=== PATIENT | female | born 1970 | race Caucasian/White ===

== ENCOUNTER → 2020-02-17 15:52 | Outpatient (CLI) | payer OTHER, SELFPAY ==
--- NOTE | ~2020-02-17 | XR_ITS ---
EXAMINATION: XR wrist RT w scaphoid DATE: 02/17/2020 16:07 INDICATION: Right wrist pain post fall TECHNIQUE: Posteroanterior, ulnar deviation, oblique, and lateral views of the right wrist were obtai dimple. COMPARISON: 03/06/2017 FINDINGS: Alignment is normal. No fracture. Joint spaces are normal. Soft tissues are unremarkable. IMPRESSION: 1. No osseous abnormality. Reviewed, dictated and finalized at location B. IMPRESSION: 1. No osseous abnormality.
== END ==
PROVIDERS: PCP Internal Medicine; Visit Provider Internal Medicine
DX: M25.531 Pain in right wrist (principal)
CPT/HCPCS: 73110

== ENCOUNTER 2020-05-05 14:08 | Outpatient (CLI) | payer OTHER, SELFPAY ==
--- NOTE | 2020-05-05 16:28 | PCRCNOTE ---
PT HAD DIFFICULTY WITH SPIROMETRY, MANY ATTEMPTS WERE TRIED, SHE WAS ABLE TO COMPLETE. ALSO, DISSCUSSED METHACHOLINE CHALLENGE, STATED I WOULD FAX TESTING TO DR TO DETERMINE WHAT HE WANTS TO DO FAR TESTING SINCE SHE IS BORDERLINE. ALSO DISCUSSED MEDICATIONS, SHE WAS RECENTLY STARTED ON FLOVENT, BUT WAS TAKING IT PRN, DOESNT HAVE A RESCUE INHALER. EXPLAINED FLOVENT WAS TO BE USED BID WITH OR WITHOUT SYMPTOMS, CONSISTENTLY IN ORDER FOR THE MEDICATION TO WORK PROPERLY. ALBUTEROL WORKS DIFFERENT, FAST ACTING, ETC.. INSTRUCTED HER TO CALL DR OFFICE IF SHE HAD ANY OTHER QUESTIONS IN REGARDS TO HER MEDICATIONS AND THEY WILL LET HER KNOW ABOUT THE METHACHOLINE TESTING
--- NOTE | 2020-05-07 17:36 | WPDPFTINT ---
PFT Interpretation PFT Interpretation: DOS:05/05/2020 REQUESTING: Jovita Aguila REASON FOR TESTING: Asthma PULMONARY FUNCTION TESTS Results are reproducible. Spirometry: FEV1 88%, normal. FVC 90%. FEV1% is normal. IFF90-27% mildly decreased 63%. There is a 13% increase in the FVC with bronchodilator administration. Lung volumes: TLC 100%. RV 102%, normal. RV/TLC increased consistent with air trapping. Increased airway resistance. Diffusion: DLCO 86%, normal. Flow volume loop: mild scooping of the expiratory limb. IMPRESSION: Mild obstruction in the small airways with air trapping and increased airway resistance. There is a positive response to bronchodilator. This pattern is consistent with asthma. Soniya Brown MD
== END 2020-05-05 14:09 | disposition home or self-care (01) ==
LOC: ANHPFT 14:09
PROVIDERS: PCP Internal Medicine; Visit Provider Internal Medicine Critical Care Medicine
DX: J45.909 Unspecified asthma, uncomplicated (principal)
CPT/HCPCS: 94060; 94726; 94729

== ENCOUNTER 2021-05-31 12:02 | Emergency (ER) | payer OTHER, SELFPAY ==
--- NOTE | ~2021-05-31 | XR_ITS ---
EXAMINATION: XR wrist RT min 3V EXAM DATE: 05/31/2021 12:44 INDICATION: trauma/radial side pain initial encounter. TECHNIQUE: Right wrist frontal, frontal with ulnar deviation, oblique and lateral projections obtain ed and reviewed. Comparison is made to prior examination from 02/17/2020. FINDINGS: Right wrist scapholunate joint space is maintained. The0re are no acute fractures or disloc ations identified. There is no subcutaneous gas. The soft tissue is unremarkable. There are no ra diopaque foreign bodies. IMPRESSION: No acute osseous findings. Reviewed, dictated and finalized at location B. P REMOVER IMPRESSION: No acute osseous findings.
[2021-05-31 12:33] VITALS: BP 133/74; PULSE 61; RESP 16; TEMP 36.8; O2SAT 100
--- NOTE | 2021-05-31 13:01 | ED.UPPEXIN ---
HPI - Extremity Injury (Upper) General Chief Complaint: Extremity Injury, Upper Stated Complaint: Rt Wrist Pain Time Seen by Provider: 05/31/21 13:01 Source: patient Mode of arrival: ambulatory Limitations: no limitations History of Present Illness HPI narrative: Annemarie Dudley is a 51 yo female with a PMH of Hodgkin's and right wrist and back pain from arthritis, who comes to [facility] with right wrist pain and difficulty lifting without pain;. 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 EYES: Denies visual changes, redness, discharge. ENT: Denies rhinorrhea, congestion, sore throat, otalgia. CARDIOVASCULAR: Denies chest pain, palpitations, edema. RESPIRATORY: Denies dyspnea, wheezing, cough GASTROINTESTINAL: Denies abdominal pain, nausea, vomiting, diarrhea. GENITOURINARY: Denies dysuria, hematuria, abnormal discharge SKIN: Denies rash or itching. NEUROLOGIC: Denies numbness, or focal weakness. PSYCHIATRIC: Denies anxiety or depression. Right wrist pain that she rates as 6/10 that started yesterday and makes it painful for her to lift any object PMFSH Past Medical History Medical History History of Hodgkin's lymphoma 2009 History of pulmonary function tests 05/07/2020 SOB (shortness of breath) Surgical History Surgical History delivery delivered Family History Family History Mother Diabetes mellitus Father Emphysema of lung Social History Social History Smoking status: Never smoker Comments At time of signature, I agree with nursing past medical, surgical, social and family history. There is no relevant family history pertinent to the presenting complaint. Exam Narrative: HEAD: normocephalic, atraumatic. EYES: Sclera clear/white. Vision is grossly intact. EARS: External ears normal, . Hearing grossly intact. NOSE: External nose normal without nasal discharge, nares without redness, no rhinorrhea. THROAT: Mucous membranes moist CARDIOVASCULAR: Regular rate and rhythm without murmurs, gallops, or rubs. RESPIRATORY: Clear to auscultation. Breath sounds equal bilaterally. No wheezes, rales, or rhonchi. GASTROINTESTINAL: Abdomen soft, non-tender, SKIN: warm, intact with no suspicious lesions or rash, good texture and turgor. NEURO: awake, alert, and oriented to person, place and time. There were no obvious focal neurologic abnormalities. Steady gait EXTREMITIES: Normal range of motion. Pain with lifting right arm overhead to touch shoulder pain is mostly paraspinal and right scapula she has pain in the wrist regardless of movement and pain with lifting she has good finger opposition BACK: Nontender without deformity Course Course Emergency Course: Patient comes with pain in her right wrist that started yesterday X-ray of her right wrist is negative for osseous changes, soft tissue unremarkable there is no radiopaque foreign bodies and no subcutaneous gas Patient has a wrist splint on and discussed continuing to use that and take it off at night elevating arm Started on naproxen and short dose of prednisone patient states that regular pain medication does not help her Vital Signs Vital signs: Vital Signs Temperature 98.2 F 05/31/21 12:33 Pulse Rate 61 05/31/21 12:33 Respiratory Rate 16 05/31/21 12:33 Blood Pressure 133/74 05/31/21 12:33 Pulse Oximetry 100 05/31/21 12:33 Temperature 98.2 F 05/19
== END 2021-05-31 13:25 | disposition home or self-care (01) ==
PROVIDERS: Emergency Provider Nurse Practitioner
DX: M25.531 Pain in right wrist (principal); Z85.71 Personal history of Hodgkin lymphoma
CPT/HCPCS: 73110; 99213; G0463

== ENCOUNTER 2021-12-28 13:31 | Outpatient (CLI) | payer OTHER, SELFPAY ==
--- NOTE | 2022-01-01 09:59 | WPDHOLTEREM ---
Holter/Event Monitor Holter/Event Monitor Date of procedure: 01/01/22 Holter/Event Procedure: 48 Hr Holter Monitor Diagnosis: Palpitations Indications: Palpitations Image/Tracing Quality: Favorable Finding: The basic cardiac rhythm appears to be sinus with normal WA QRS and QT intervals. The heart rate varies from a minimum of 50 to a maximum of 121 with an average rate of 75. There were no significant pauses or abnormalities of AV conduction observed. The longest RR interval seen was 1.3 seconds. Supraventricular ectopic activity was rare a total of 7 PACs were seen during the entire 48 hours of recording. There were no atrial runs and there were no examples of atrial fibrillation. Ventricular ectopic activity was not seen at all during this time There was no patient diary submitted there was indicated there were no symptoms during this exam. Conclusion: Unremarkable 48 hour Holter monitor showing sinus rhythm with normal heart rate variability and rare atrial ectopic activity Tim Rios MD [facility]
== END 2021-12-28 13:32 | disposition home or self-care (01) ==
LOC: ANHCARD 13:32
PROVIDERS: PCP Family Medicine; Visit Provider Family Medicine
DX: R00.2 Palpitations (principal); R07.9 Chest pain, unspecified
CPT/HCPCS: 93225; 93226

== ENCOUNTER 2022-04-25 10:13 | Outpatient (CLI) | payer OTHER, SELFPAY ==
--- NOTE | ~2022-04-25 | MM_ITS ---
EXAMINATION: MM screening dane BI w rex HISTORY: Screening mammogram TECHNIQUE: Craniocaudal and mediolateral oblique 3-D tomosynthesis images were obtained and synthetic 2-D images were generated. CAD analysis was submitted and interpreted. COMPARISON: No prior mammogram is available for comparison at this institution. BREAST PARENCHYMAL COMPOSITION: There are scattered areas of fibroglandular density. FINDINGS: There are bilateral microcalcifications including a cluster of grouped granular microcalcif ications in the central left breast. Lateral diagnostic mammography with magnification views is recom mended. No suspicious mass, architectural distortion, skin thickening or retraction of either breast is noted . IMPRESSION: 1. Bilateral microcalcifications 2. Bilateral diagnostic mammography with magnification views is recommended BI-RADS Category 0: Incomplete: Needs additional imaging evaluation. Reviewed, dictated and finalized at location A. ING PROPERTY MANAGER
== END 2022-04-25 10:14 | disposition home or self-care (01) ==
LOC: ANHIMG 10:15
PROVIDERS: PCP Family Medicine; Visit Provider Family Medicine
DX: Z12.31 Encounter for screening mammogram for malignant neoplasm of breast (principal); R92.8 Other abnormal and inconclusive findings on diagnostic imaging of breast
CPT/HCPCS: 77063; 77067

== ENCOUNTER 2022-05-27 13:35 | Outpatient (CLI) | payer OTHER, SELFPAY ==
--- NOTE | ~2022-05-27 | MM_ITS ---
EXAMINATION: MM diagnostic mammo BI HISTORY: Bilateral breast calcifications on screening mammogram TECHNIQUE: Magnification views of the breasts were performed and synthetic 2-D images were generated. CAD analysis was submitted and interpreted. COMPARISON: 04/25/2022 FINDINGS: Left breast: There are grouped fine pleomorphic calcifications in the middle third of the outer breas t at the 3:00 location 4.5 cm from the nipple. No associated mass or architectural distortion are azra ntified. Right breast: There is subtle grouped calcifications in the middle third of the lower breast at the 6 :00 location 5 cm from the nipple which appear to be round in morphology. No associated mass or archi tectural distortion are identified. IMPRESSION: 1. Indeterminate left breast calcifications for which stereotactic biopsy is recommended. 2. Probably benign right breast calcifications. Follow-up right diagnostic mammogram in six months is recommended. BI-RADS category 4, suspicious findings. Reviewed, dictated and finalized at location A. ERTY ADMINISTRATOR IMPRESSION: 1. Indeterminate left breast calcifications for which stereotactic biopsy is re commended. 2. Probably benign right breast calcifications. Follow-up right diagnostic mamm ogram in six months is recommended. BI-RADS category 4, suspicious findings.
== END 2022-05-27 13:36 | disposition home or self-care (01) ==
PROVIDERS: PCP Family Medicine; Visit Provider Family Medicine
DX: R92.8 Other abnormal and inconclusive findings on diagnostic imaging of breast (principal)
CPT/HCPCS: 77066

== ENCOUNTER 2022-06-16 12:30 | Outpatient (CLI) | payer OTHER, SELFPAY ==
--- NOTE | ~2022-06-16 | MM_ITS ---
EXAMINATION: MM stereotactic bx LT, Specimen Radiograph, Tissue Marker Clip Placement, Unilateral Shirlene mogram DATE: 06/16/2022 14:22 INDICATION: Abnormal mammogram: Grouped fine pleomorphic microcalcifications in middle third of outer left breast at 3:00 location 4.5 cm from nipple reported on 05/27/2022 diagnostic mammogram. TECHNIQUE AND FINDINGS: The risks and potential benefits of the procedure were discussed with the patient and written informe d consent was obtained. Timeout procedure was performed. The patient was placed in the prone position on the dedicated stereotactic table with the left breast in mediolateral compression, and the area o f interest was localized and targeted utilizing digital imaging with stereotaxis. After sterile preparation of the skin, 2 % lidocaine was utilized for local anesthesia at the skin pu ncture site and minimal 2 % lidocaine with epinephrine was utilized for deeper local anesthesia/is ab out the biopsy site. A 9G Orthos vacuum assisted biopsy needle was advanced to the level of the calci fication of interest from a medial approach utilizing stereotactic guidance and a total of 12 tissue core biopsies were obtained. A specimen radiograph demonstrates that the calcifications of interest are included within the tissue cores. A tissue marker clip was then placed at the biopsy site. A digital mammographic exposure co nfirmed the successful deployment of the biopsy marker. The needle was removed and hemostasis was ac hieved. A sterile bandage was applied. The patient tolerated the procedure well and there is no luke dence of significant immediate complication. The patient was given verbal as well as written postpro cedural instructions prior to discharge from the department. Tissue cores were submitted to surgical pathology for histologic analysis. A 2-view right unilateral digital mammogram was obtained post procedure, demonstrating the tissue mar ker clip in expected position. IMPRESSION: 1. Successful stereotactic biopsy of grouped microcalcifications, followed by tissue marker clip pl acement. Please refer to pathology report for histologic analysis. Reviewed, dictated and finalized at Location A. Reviewed, dictated and finalized at location A. ENGINEER IMPRESSION: 1. Successful stereotactic biopsy of grouped microcalcifications, followed by tissue marker clip placement. Please refer to pathology report for histologic analysis.
--- NOTE | ~2022-06-16 | MM_ITS ---
MM stereotactic specimen LT DATE: 06/16/2022 14:22 INDICATION: DJD biopsy TECHNIQUE: Digital mammographic exposure of stereotactic biopsy specimen tissue COMPARISON: 06/06/2022 bilateral diagnostic mammogram FINDINGS: Numerous microcalcifications of interest are present within the specimen tissue. IMPRESSION: Successful yield of numerous microcalcifications of interest Reviewed, dictated and finalized at Location A. Reviewed, dictated and finalized at location A. D CARE COORDINATOR
--- NOTE | ~2022-06-16 | MM_ITS ---
MM post biopsy diagnostic LT DATE: 06/16/2022 14:23 INDICATION: Stereotactic biopsy of indeterminate grouped microcalcifications of left breast TECHNIQUE: Digital ML and CC exposures of the left breast on stereotactic biopsy COMPARISON: 06/06/2022 diagnostic left mammogram FINDINGS: A biopsy marker is present at the site of previously reported grouped indeterminate microca lcifications; all microcalcifications have been successfully removed by stereotactic biopsy. The biop sy marker is in expected position. IMPRESSION: Successful stereotactic biopsy removing all microcalcifications of interest several biops y marker in expected position at site of former microcalcifications Reviewed, dictated and finalized at Location A. Reviewed, dictated and finalized at location A. ODIAL MANAGER IMPRESSION: Successful stereotactic biopsy removing all microcalcifications of interest several biopsy marker in expected position at site of former microcalc ifications
== END 2022-06-16 12:31 | disposition home or self-care (01) ==
PROVIDERS: PCP Family Medicine; Visit Provider Surgery
DX: R92.0 Mammographic microcalcification found on diagnostic imaging of breast (principal)
CPT/HCPCS: 19081; 77065; 88305; 88342

== ENCOUNTER 2022-09-28 10:30 | Outpatient (RCR) | payer OTHER, SELFPAY ==
--- NOTE | 2022-07-20 08:16 | BUPTOPEVAL1 ---
Assessment and note entered by Naomie Hinton PT Evaluation Information Assessment Status Evaluation Diagnosis SI inflammation Onset chronic Subjective Information Pt unable to report start of pain. Pt reports pain to be worse in the morning and with cold weather. Pt reports falling asleep on heating pad on a nightly basis - heat reduces pain to allow pt to sleep. Reported Pain Level Pain Score 5: Self Report Assessment PT Clinical Summary Pt is a 52 year old female who present with R buttock/R SI joint pain. Noted increase Burning pain with palpation to R piriformis and increase aching pain with hip abduction testing. Pt noted to have a increase lordotic posture and an anterior pelvic tilt. Pt noted to have slight strength deficits specifically in hip abduction and hip extension. Patient will benefit from skilled therapy for reduce R buttock/SI joint pain , improve posture, increase BLE strength, and increase Jose hip ROM (R>L). Plan of Care Interventions Electrical Stimulation,Gait Training,Hot Pack/Cold Pack,Manual Therapy,Neuro Re-education,Patient/ Caregiver Education,Therapeutic Activities, Therapeutic Exercise,Self-Care/Home Management, Ultrasound PT Services Indicated Yes These treatments will address the objective and functional deficits as defined above. The patient will be advanced safely and appropriately in order for the patient to progress towards his/her prior level of function. Additional exercises will be introduced and as well as a comprehensive home exercise program upon discharge, if needed, ?to ensure carryover of functional gains achieved in the clinic. This treatment plan has been reviewed and agreement upon by the patient.
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
--- NOTE | 2022-09-13 10:33 | PCPTNOTE ---
Patient called & cancelled scheduled appointment this date due to being called into work.
--- NOTE | 2022-09-28 10:59 | PTOPDC ---
Assessment and note entered by Jeannine Hua, PT Assessment Status Discharge Diagnosis SI inflammation Onset chronic Subjective Information Pt reports feeling better since changing jobs. Pt reports feeling 97% better. Is not acing today, can feel a little not pain, just weird . can feel it there but is not painful, I worked it . Is not having to ice after work. 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 Reports feeling great Reported Pain Level Pain Score 1: Self Report Assessment PT Clinical Summary Pt reports feeling 97% improved overall. States changed jobs and this helped advance beyond 85% improvement from last reevaluation. She shows hip ROM within normal limits, increased lumbopelvic strength, and appropriate pelvic alignment maintained. Pt has met her goals for therapy and reports feeling great . She has been provided her final home exercise program and instructions and is thus being discharged from therapy for completing her program.
== END 2022-09-28 11:13 | disposition home or self-care (01) ==
LOC: ANHHIPT 10:30
PROVIDERS: PCP Physician Assistant Medical; Visit Provider Physician Assistant Medical
DX: M54.31 Sciatica, right side (principal); M46.1 Sacroiliitis, not elsewhere classified
CPT/HCPCS: 97014; 97032; 97035; 97110; 97112; 97140; 97161; G0283

== ENCOUNTER 2023-07-15 09:46 | Emergency (ER) | payer OTHER, SELFPAY ==
--- NOTE | ~2023-07-15 | XR_ITS ---
EXAMINATION: XR chest 2V 07/15/2023 10:12 INDICATION: Cough. Asthma. PROCEDURE: 2 view chest COMPARISON: No prior studies for comparison. FINDINGS: The lungs are clear. The cardiomediastinal silhouette is within normal limits. There are no pleural effusions. There is no pneumothorax suspected. IMPRESSION: 1: NO ACUTE CARDIOPULMONARY DISEASE. Reviewed, dictated and finalized at location A. FIXER APPRENTICE
[2023-07-15 09:54] VITALS: BP 128/76; PULSE 75; RESP 16; TEMP 36.4; O2SAT 100
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
== END 2023-07-15 10:24 | disposition home or self-care (01) ==
PROVIDERS: Emergency Provider Nurse Practitioner Family; PCP Physician Assistant Medical
DX: J45.909 Unspecified asthma, uncomplicated (principal); R05.1 Acute cough; Z20.822 Contact with and (suspected) exposure to COVID-19; Z85.71 Personal history of Hodgkin lymphoma
CPT/HCPCS: 71046; 87426; 99213; G0463

== ENCOUNTER 2023-10-09 14:15 | Outpatient (RCR) | payer OTHER, SELFPAY ==
--- NOTE | 2023-08-24 13:53 | PTOPEVAL1 ---
Assessment and note entered by Jeannine Hua, PT Evaluation Information Assessment Status Evaluation Diagnosis low back pain unspecified Subjective Information Went to [facility] in February of last year (6 months ago ) for back pain, got an x-ray that shows mild facet arthritis in lower levels of lumbar Pt reports pain has persisted but in the last month had to add an extra 10 hour shift at her job so has 3 days in a row 10 hours shifts. Pain is in the middle and sometimes bounces back and forth. Had a shooting pain in the LLE partway down the hip but not to knee. Has happened about 3 times in the last month. Difficulty picking up items, tried to pepper picker her dad's 12 lb cat and couldn't because her back pulled. Tried getting a massage and this made her back pain worse. Mathis good at the time, medium pressure but about 30 minutes after pain was worse and could hardly get out of her chair Reported Pain Level Pain Score 7: Self Report Assessment PT Clinical Summary Pt presents w/ c/o back pain that has persisted ~6 months but has worsened as her work load increased. She currently is restricted in her lifting due to discomfort, and has pain with her ADLs and activities. Pt demo's (+) lumbar instability, decreased hip joint ROM bilat, soft tissue adhesions and tonicity issues, swelling/ edema to bilat gluteus minimus muscle groups with tenderness to palpation, and decreased strength overall of her lumbopelvic core musculature. Pt will greatly benefit form physcial therapy to address the above deficits, reduce her pain, and allow improved function. Plan of Care Interventions Electrical Stimulation,Hot Pack/Cold Pack,Manual Therapy,Mechanical Traction,Neuro Re-education, Therapeutic Activities,Therapeutic Exercise, Ultrasound PT Services Indicated Yes Treatment Frequency and 2x weekly x 12 visits Duration These treatments will address the objective and functional deficits as defined above. The patient will be advanced safely and appropriately in order for the patient to progress towards his/her prior level of function. Additional exercises will be introduced and as well as a comprehensive home exercise program upon d
--- NOTE | 2023-08-24 13:53 | OPREHPOC ---
Outpatient Therapy Plan of Care This is a Multidisciplinary Plan of Care that may contain components documented by all disciplines (PT, OT, and ST.) PT Problem 1 PT Problem #1 Knowledge Deficit PT Goal 1 Goal Pt will be independent in HEP Pt will verbalize understanding of diagnosis and prognosis Target Visit 6 PT Problem 2 PT Problem #2 Pain PT Goal 1 Goal Pt will report greatest pain level at 5/10 or less to improve ADLs and activities Target Visit 6 PT Goal 2 Goal Pt will report only mild pain to return to PLOF Target Visit 12 PT Problem 3 PT Problem #3 Impaired Range of Motion PT Goal 1 Goal Pt will demo full Lumbar ROM without pain Target Visit 12 PT Goal 2 Goal Pt will demo improved hip mobility with internal and external rotation Target Visit 12 PT Problem 4 PT Problem #4 Impaired Strength PT Goal 1 Goal Pt will demo strength of 4+/5 bilat LEs in all tested planes Target Visit 12 PT Goal 2 Goal Pt will demo core strength of 4+/5 of the TRAM to improve lumbopelvic stability Target Visit 12
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
--- NOTE | 2023-10-13 15:07 | PCPTNOTE ---
Cancelled pt appointment today due to staffing shortage
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
== END 2023-10-18 13:57 | disposition home or self-care (01) ==
LOC: ANHHIPT 14:15
PROVIDERS: PCP Physician Assistant Medical; Visit Provider Physician Assistant Medical
DX: M54.50 Low back pain, unspecified (principal)
CPT/HCPCS: 97014; 97110; 97140; 97162; G0283

== ENCOUNTER 2023-10-27 09:46 | Outpatient (CLI) | payer OTHER, SELFPAY ==
--- NOTE | ~2023-10-27 | MR_ITS ---
MRI of the lumbar spine Clinical History: Radiculopathy Technique: Axial T2-weighted images, and sagittal T1-weighted, T2-weighted, and T2 fat-sat images wer e acquired. Findings: There is no fracture or subluxation of the lumbar spine. Vertebral bodies maintain normal h eight and alignment. No bone marrow signal reality seen. At L1-L2, L2-L3, L3-L4, there is no disc bulge or herniation. There are mild facet joint degenerative changes at these levels. No spinal canal stenosis or neural foraminal narrowing at these levels. At L4-L5, there is mild diffuse disc bulge and moderate facet arthropathy. No central canal stenosis. There is mild to moderate bilateral neural foraminal narrowing. L5-S1, there is central disc protrusion with moderate facet arthropathy. No central canal stenosis. T here is moderate severe bilateral neural foraminal narrowing. Paravertebral soft tissues are unremarkable. Impression: Moderate to advanced degenerative spondylosis at L5-S1. [id number] degenerative spondylosis at L4-L5, as detailed above. Reviewed, dictated and finalized at [facility]. Impression: Moderate to advanced degenerative spondylosis at L5-S1. [id number] degenerative spondylosis at L4-L5, as detailed above.
--- NOTE | ~2023-10-27 | MR_ITS ---
MRI of the right hip Clinical history: Pain Technique: Coronal T1-weighted, T2-weighted, and proton-density fat-sat images, and axial T1-weighted and proton-density fat-sat images were acquired through the pelvis. Coronal T2-weighted images and c oronal, axial, and sagittal proton-density fat-sat images were acquired through the right hip. Findings: There is no fracture or avascular necrosis of either hip. Bone marrow signals of the proxim al femora and pelvic bones are unremarkable. Bilateral hip joint spaces are preserved. Articular cart ilage appears intact. No joint effusion seen. No right acetabular labral tear evident. Visualized musculature about the pelvis and right hip is unremarkable. No muscle atrophy or edema. Vi sualized tendons are intact. No soft tissue mass or fluid collection. No evidence of bursitis. IMPRESSION: No significant abnormality seen. Reviewed, dictated and finalized at [facility].
== END 2023-10-27 09:47 | disposition home or self-care (01) ==
PROVIDERS: PCP Physician Assistant Medical; Visit Provider Physician Assistant Medical
DX: M47.896 Other spondylosis, lumbar region (principal); M47.897 Other spondylosis, lumbosacral region; M25.551 Pain in right hip
CPT/HCPCS: 72148; 73721

== ENCOUNTER 2024-02-20 10:45 | Outpatient (RCR) | payer OTHER, SELFPAY ==
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
--- NOTE | 2023-11-22 15:57 | OPREHPOC ---
Outpatient Therapy Plan of Care This is a Multidisciplinary Plan of Care that may contain components documented by all disciplines (PT, OT, and ST.) PT Problem 1 PT Problem #1 Knowledge Deficit PT Goal 1 Goal Pt will be independent in HEP Pt will verbalize understanding of diagnosis and prognosis Target Visit 6 PT Problem 2 PT Problem #2 Pain PT Goal 1 Goal Pt will report greatest pain level at 3/10 or less to improve ADLs and activities Target Visit 6 PT Goal 2 Goal Pt will report resolution of pain while performing work activities such as prolonged standing and lifting Target Visit 12 PT Problem 3 PT Problem #3 Impaired Range of Motion PT Goal 1 Goal pt lumbar L rotation ROM will improve by 10 degrees Target Visit 6 PT Goal 2 Goal Pt lumbar L rotation will be equal to R with no pain provocation Target Visit 12 PT Problem 4 PT Problem #4 Impaired Strength PT Goal 1 Goal Pt lower abdominal strength will be 4/5 or greater Target Visit 12 PT Goal 2 Goal Pt hip abduction strength will be 4/5 or greater Jose Target Visit 12
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
--- NOTE | 2024-02-02 10:52 | PTOPPROG ---
Assessment and note entered by Jeannine Hua, PT Evaluation Information Assessment Status Progress Diagnosis sacroiliitis, not elsewhere classified, spondylosis unspec ICD-10 Condition Codes (PT) Pain in low back M54.50,Pain in right hip M25.551, Weakness R53.1 Onset 6 months ago Subjective Information It has been a month since has been able to return to therapy because of insurance issues States is feeling swollen on the right hip and feels achy and stiff. Bilat low back also hurting. States is sleeping with pillow in between knees but when rolls over on right hip is painful but then reduces some and can lay on that side for a while. Assessment PT Clinical Summary Pt returns after a break in therapy due to insurance issues. She reports pain has maintained around a 5-6/10 in the hip and into the low back. Evaluation shows she has been able to maintain her strength in her hips and core musculature, muscle flexibility appears WFL, however right hip ROM is significantly decreased compared to left and demo 's pelvic alignment deficit with possible leg length discrepancy. Cont to have multiple areas of increased muscle tone and tenderness with palpation as well. Pt will benefit from cont therapy to continue improvement in all aspects in order to allow pt to return to PLOF without pain. Plan of Care Interventions Electrical Stimulation,Hot Pack/Cold Pack,Manual Therapy,Neuro Re-education,Patient/Caregiver Educati,Therapeutic Activities,Therapeutic Exercise,Ultrasound,Other PT Services Indicated Yes Treatment Frequency and 2x weekly x 10 visits Duration These treatments will address the objective and functional deficits as defined above. The patient will be advanced safely and appropriately in order for the patient to progress towards his/her prior level of function. Additional exercises will be introduced and as well as a comprehensive home exercise program upon discharge, if needed, ?to ensure carryover of functional gains achieved in the clinic. This treatment plan has been reviewed and agreement upon by the patient.
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
--- NOTE | 2024-02-16 15:39 | OPREHPOC ---
Addendum entered by Angelica Baldwin DPT 04/04/24 09:26: Entered on wrong account number. Original Note: Outpatient Therapy Plan of Care This is a Multidisciplinary Plan of Care that may contain components documented by all disciplines (PT, OT, and ST.) PT Problem 1 PT Problem #1 Knowledge Deficit PT Goal 1 Goal / Goal Update Pt will be independent in HEP Pt will verbalize understanding of diagnosis and prognosis Target Visit 6 Progress Met PT Problem 2 PT Problem #2 Pain PT Goal 1 Goal / Goal Update Pt will report greatest pain level at 3/10 or less to improve ADLs and activities Target Visit 6 Progress Not Met PT Goal 2 Goal / Goal Update Pt will report resolution of pain while performing work activities such as prolonged standing and lifting Target Visit 12 Progress Not Met PT Problem 3 PT Problem #3 Impaired Range of Motion PT Goal 1 Goal / Goal Update pt lumbar L rotation ROM will improve by 10 degrees Target Visit 6 Progress Not Met PT Goal 2 Goal / Goal Update Pt lumbar L rotation will be equal to R with no pain provocation Target Visit 12 Progress Not Met PT Problem 4 PT Problem #4 Impaired Strength PT Goal 1 Goal / Goal Update Pt lower abdominal strength will be 4/5 or greater Target Visit 12 Progress Partially Met PT Goal 2 Goal / Goal Update Pt hip abduction strength will be 4/5 or greater Jose Target Visit 10 OT Problem 1 OT Problem #1 Knowledge Deficit OT Goal 1 Goal / Goal Update 1. Patient to be independent with instructed materials. 2. Patient to adhere to splint wearing schedule. Target Visit 6 OT Problem 2 OT Problem #2 Pain OT Goal 1 Goal / Goal Update 1. Patient to report reduced right wrist pain to 0 /10 at rest and 2/10 at worst . 2. Patient to report reduced right finger pain to
--- NOTE | 2024-02-21 17:02 | PCPTNOTE ---
This treatment is being continued on visit number [id number]. Please see documentation on both accounts to view progress. Completed interventions, outcomes, and problems have been marked as Inactive to facilitate the copying of the Care plan routine for recurring accounts.
== END 2024-02-29 23:59 | disposition home or self-care (01) ==
LOC: ANHHIPT 10:45
PROVIDERS: PCP Physician Assistant Medical; Visit Provider Physician Assistant Medical
DX: M46.1 Sacroiliitis, not elsewhere classified (principal); M47.819 Spondylosis without myelopathy or radiculopathy, site unspecified
CPT/HCPCS: 97014; 97035; 97110; 97112; 97116; 97140; 97161; 97166; 97530; 97750; G0283; L3933

== ENCOUNTER 2024-04-01 08:00 | Outpatient (RCR) | payer OTHER, SELFPAY ==
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
== END 2024-05-03 12:45 | disposition home or self-care (01) ==
LOC: ANHHIOT 08:00
PROVIDERS: PCP Physician Assistant Medical; Visit Provider Physician Assistant Medical
DX: M25.531 Pain in right wrist (principal); M79.641 Pain in right hand
CPT/HCPCS: 97018; 97035; 97110; 97140; 97166; L3933

== ENCOUNTER 2024-05-03 08:45 | Outpatient (RCR) | payer OTHER, SELFPAY ==
--- NOTE | 2024-02-21 17:02 | PCPTNOTE ---
The treatment documented on this account is a continuation of the treatment documented on visit number [id number]. Please see documentation on both accounts to view progress. The Plan of Care has been transitioned and updated within the new V#. I have addressed and agree with the discipline specific Problems, Interventions, and Goals for the current certification period. Completed interventions, outcomes, and problems have been marked as Inactive to facilitate the copying of the Care plan routine for recurring accounts.
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
--- NOTE | 2024-04-22 14:27 | PCPTNOTE ---
Pt called early am and cancelled appt due to being called into work
--- NOTE | 2024-04-29 15:06 | PCPTNOTE ---
Patient called & cancelled scheduled appointment this date due to being called into work
--- NOTE | 2024-05-03 12:35 | PTOPDC ---
Assessment and note entered by Jeannine Hua, PT Evaluation Information Assessment Status Discharge Diagnosis sacroiliitis, not elsewhere classified, spondylosis unspec ICD-10 Condition Codes (PT) Pain in right hip M25.551,Weakness R53.1,Pain in low back M54.50 Onset 6 months ago Subjective Information Is able to lay on the right hip now. Notes stiffness appears related more to weather and position of sitting. Work shifts are doing well. 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 Reports recent therapy has really helped improve activities. States is able to do more at home now. Self-perceived improvement:85% Getting back to normal activities starting from lower levels. Reported Pain Level Pain Score 1: Self Report Assessment PT Clinical Summary Pt has attended therapy consistently for her left hip and low back pain. Had multiple exacerbating instances beyond her control during POC. However she has been motivate and put forth full effort during her POC. Currently she rates herself at 85% improvement overall, has met her ROM, and strength goals. Her pain ranges 1-3/10 and she reports she notes she is getting more done around the house. Pt is happy with her progress and verbalizes understanding of maintenance and when to return to therapy in the future. Thus patient is being discharged from POC for completion of program. Plan of Care PT Services Indicated No
== END 2024-05-03 12:38 | disposition home or self-care (01) ==
LOC: ANHHIPT 08:45
PROVIDERS: PCP Physician Assistant Medical; Visit Provider Physician Assistant Medical
DX: M46.1 Sacroiliitis, not elsewhere classified (principal); M47.819 Spondylosis without myelopathy or radiculopathy, site unspecified; M25.531 Pain in right wrist; M79.641 Pain in right hand
CPT/HCPCS: 97012; 97014; 97018; 97035; 97110; 97140; 97750; G0283